=== PATIENT | female | born 1995 | race Caucasian/White ===

== ENCOUNTER 2018-04-02 13:02 | Outpatient (CLI) | payer OTHER ==
--- NOTE | 2018-04-02 14:21 | ULT ---
dPELVIC SONOGRAM TRANSABDOMINAL AND TRANSVAGINAL IMAGING WITH DUPLEX EVALUATION: HISTORY: Pelvic pain. FINDINGS: Urinary bladder is unremarkable. Uterus has a heterogeneous echotexture and is 7.1 cm. Physiologic amount of free fluid within the cul-de-sac. Right ovary measures up to 5.9 cm with a dominant hetero geneous hypoechoic cystic lesion measuring up to 4.7 cm. Good color and spectral Doppler flow within each ovary. The left ovary is 2.6 cm greatest diameter. IMPRESSION: 1. Large complex right ovarian cystic mass. 4.7 cm. 2. Thickened endometrium of 1.4 cm. POS: [facility]
== END 2018-04-02 13:03 | disposition home or self-care (01) ==
LOC: SCSULT 13:02
PROVIDERS: ATTEND Nurse Practitioner Women's Health
DX: R10.2 Pelvic and perineal pain (principal); N83.201 Unspecified ovarian cyst, right side; R93.89 Abnormal findings on diagnostic imaging of other specified body structures
CPT/HCPCS: 76856